=== PATIENT | female | born 1995 | race Caucasian/White ===

== ENCOUNTER 2020-06-14 08:48 | Day surgery (SDC) | payer OTHER ==
[2020-06-11 15:53] VITALS: BMI 22.6
[2020-06-14] MEDS ORDERED: MIDAZOLAM HCL 2 MG/2 ML SINGLE DOSE VIAL ONE (10:16)
[2020-06-14] MEDS ORDERED: fentaNYL CITRATE 250 MCG/5 ML VIAL ONE (10:16)
[2020-06-14] MEDS ORDERED: PROPOFOL 20 ML ONE (10:17)
[2020-06-14] MEDS ORDERED: ROCURONIUM BROMIDE 50 MG/5 ML SYRINGE ONE (10:44)
[2020-06-14] MEDS ORDERED: EPHEDRINE SULFATE/0.9% NACL/PF 50 MG/10 ML SYRINGE NR ONE (11:00)
[2020-06-14] MEDS ORDERED: oxyCODONE HCL 5 MG TABLET PO PRN (11:29)
[2020-06-14] MEDS ORDERED: ONDANSETRON 4 MG/2 ML VIAL IVPUSH PRN (11:29)
[2020-06-14] MEDS ORDERED: LACTATED RINGERS SOLUTION 1,000 ML IV SCH (11:30)
[2020-06-14] MEDS ORDERED: DEXAMETHASONE SOD PHOSPHATE 4 MG/1 ML VIAL ONE (11:41)
[2020-06-14] MEDS ORDERED: KETOROLAC TROMETHAMINE 30 MG/1 ML VIAL ONE (11:41)
[2020-06-14] MEDS ORDERED: ceFAZolin SODIUM 1 GM VIAL ONE (11:41)
[2020-06-14] MEDS ORDERED: TRANEXAMIC ACID 1000 MG/10 ML VIAL ONE (11:41)
[2020-06-14] MEDS ORDERED: DESFLURANE GAS 240 ML BOTTLE IH ONE (11:41)
[2020-06-14] MEDS ORDERED: LIDOCAINE HCL 2% JELLY (5 ML/TUBE) ONE (11:41)
[2020-06-14] MEDS ORDERED: LIDOCAINE HCL/PF 2% SDV 5ML VIAL ONE (11:41)
[2020-06-14] MEDS ORDERED: GLYCOPYRROLATE 0.2 MG/1 ML VIAL ONE ×2 (11:41→12:39)
[2020-06-14] MEDS ORDERED: NEOSTIGMINE METHYLSULFATE 0.5 MG/ML - 10 ML MDV ONE (12:40)
[2020-06-14] MEDS ORDERED: HYDROmorphone HCL 0.5 MG/0.5 ML SYRINGE ONE (13:51)
[2020-06-14] MEDS ORDERED: ACETAMINOPHEN 500 MG TABLET (FP) ONE (14:21)
[2020-06-14] MEDS ORDERED: HYDROmorphone HCL CARPU-JECT 2 MG/1 ML DISP.SYRIN IVPUSH ONE (14:27)
[2020-06-14] MEDS ORDERED: oxyCODONE HCL 5 MG TABLET PO ONE (14:28)
[2020-06-14] MEDS ORDERED: ACETAMINOPHEN 500 MG TABLET (FP) PO ONE (14:28)
[2020-06-14 15:04] VITALS: TEMP 97.9
[2020-06-14 15:50] VITALS: BP 120/76; PULSE 60
== END 2020-06-14 15:50 | disposition home or self-care (01) ==
LOC: FASU 08:48
PROVIDERS: ATTEND Orthopaedic Surgery Sports Medicine
PROC: 0SB94ZZ Excision of Right Hip Joint, Percutaneous Endoscopic Approach (ICD-10-PCS; principal; 2020-06-14 11:18)
DX: S73.191A Other sprain of right hip, initial encounter (principal); M25.751 Osteophyte, right hip; X58.XXXA Exposure to other specified factors, initial encounter; Y93.9 Activity, unspecified; Y92.9 Unspecified place or not applicable; Y99.9 Unspecified external cause status
CPT/HCPCS: 73502-TC-RT-FY; 84703; 94760